=== PATIENT | female | born 1960 | race Caucasian/White ===

== ENCOUNTER → 2016-10-22 | Outpatient (CLI) | payer BC ==
[~2016-10-22] MED LIST: ATENOLOL25 M1 PO; LEVO-T175 MCG PO
--- NOTE | 2016-10-22 11:31 | RADIOLOGY REPORT PS360 ---
US RUQ-(ABD LTD)1ORGAN/QUAD/FU ORDERING PHYSICIAN : Maxx Anguiano PATIENT AGE: 56 years GENDER: Female INDICATION: BG DISEASE Episodes upper abdominal pain reflux and nausea. TECHNIQUE: Ultrasound right upper quadrant COMPARISON: FINDINGS Pancreas unremarkable. Liver. Unremarkable. No biliary ductal dilatation. No focal lesion. Gallbladder. No gallstones. No gallbladder wall thickening. Scant debris and sludge Common duct normal diameter measuring less than 3 mm at hilum of liver. Right kidney 8.6 cm in length cortex well-maintained with no hydronephrosis nor mass. --------IMPRESSION No significant findings. Gallbladder. No gallstones evident. IMPRESSION:
== END ==
LOC: RAD 08:17
DX: K82.9 Disease of gallbladder, unspecified (principal)

== ENCOUNTER → 2017-08-09 | Outpatient (CLI) | payer BC ==
[2017-08-09 19:27] LABS: BUN 17 mg/dL (7-18)
[2017-08-09 19:28] LABS: GFR (ESTIMATED) 57 ML/MIN (59-)
== END ==
LOC: LAB 17:06
PROVIDERS: Internal Medicine
DX: E03.9 Hypothyroidism, unspecified (principal); I34.1 Nonrheumatic mitral (valve) prolapse; R00.2 Palpitations